=== PATIENT | male | born 1975 | race Caucasian/White ===

== ENCOUNTER 2017-10-11 16:57 | Emergency (ER) | payer BC ==
[2017-10-11 17:18] VITALS: BP 126/75
--- NOTE | 2017-10-11 17:54 | UC ---
Back Pain HPI - HPI Summary HPI Summary: 42 year old male presents with onset of mid thoracic back pain 2 days ago while cleaning his pool. Became more sever today when he leaned forward to make some coffee. Describes pain as constant ache with occasional spasming that worsens with bending, twisting, or lifting. He had a similar injury approximately 1 month ago that he self treated with NSAIDs, ice and heat with improvement. Denies fever, chills, CP, SOB, weakness, dizziness, abdominal pain, nausea, vomiting, dysuria, frequency, urgency, hematuria, weakness, numbness, tingling in extremities or loss of bowel or bladder control. - History of Current Complaint Chief Complaint: UCBackPain Stated Complaint: MID TO LEFT BACK PAIN Time Seen by Provider: 10/11/17 17:31 Hx Obtained From: Patient Onset/Duration: Gradual Onset Timing: Constant, Lasting Days - 2 Severity Initially: Mild Severity Currently: Moderate Pain Intensity: 1 Character: Aching, Spasmodic Aggravating Factor(s): Movement, Lifting, Bending Alleviating Factor(s): Nothing Associated Signs And Symptoms: Positive: Negative - Risk Factors AAA Risk Factors: Negative Cauda Equina Risk Factors: Negative - Allergies/Home Medications Allergies/Adverse Reactions: Allergies Allergy/AdvReac Type Severity Reaction Status Date / Time No Known Allergies Allergy Verified 10/11/17 17:10 PMH/Surg Hx/FS Hx/Imm Hx Previously Healthy: Yes - Surgical History Surgical History: None - Family History Known Family History: Positive: Other - noncontributory - Social History Occupation: Employed Full-time Lives: With Family Alcohol Use: None Substance Use Type: None Smoking Status (MU): Heavy Every Day Tobacco Smoker Type: Cigarettes Amount Used/How Often: 1 PPD Length of Time of Smoking/Using Tobacco: 20 YEARS - Immunization History Most Recent Tetanus Shot: UTD Review of Systems Constitutional: Negative Skin: Negative Respiratory: Negative Cardiovascular: Negative Gastrointestinal: Negative Genitourinary: Negative Motor: Negative Neurovascular: Negative Musculoskeletal: Other: - See HPI Neurological: Negative Is Patient Immunocompromised?: No All Other Systems Reviewed And Are Negative: Yes Physical Exam Triage Information Reviewed: Yes Appearance: Well-Appearing, No Pain Distress, Well-Nourished Vital Signs: Initial Vital Signs Temp 98 F 10/11/17 17:11 Pulse 66 10/11/17 17:11 Resp 16 10/11/17 17:11 BP 126/75 10/11/17 17:11 Pulse Ox 100 10/11/17 17:11 Vital Signs Reviewed: Yes Respiratory: Positive: Lungs clear, Normal breath sounds, No respiratory distress Cardiovascular: Positive: RRR, No Murmur, Pulses Normal, Brisk Capillary Refill Abdomen Description: Positive: Nontender, Soft. Negative: Pulsatile Mass Musculoskeletal: Positive: Strength Intact, Other: - CTL spine nontender Neurological: Positive: Muscle Tone Normal, Other: - sensation intact Skin Exam: Normal Back Pain Course/Dx - Course Course Of Treatment: 42 year old male with 2 day history of mid thoracic back pain that began after cleaning pool. Similar injury approximately 1 month ago that was self-treated with conservative measures. Exam benign. Likely muscular in origin. Will treat with naproxen, cyclobenzaprine, and heat. Patient already has appointment with PT. He was given a list of PCPs to follow up with if pain symptoms do not improve in 2 weeks. - Differential Dx/Diagnosis Differential Diagnosis/HQI/PQRI: Herniated Disc, Other - Muscle strain Provider Diagnoses: Acute thoracic back pain Discharge - Sign-Out/Discharge Documenting (check all that apply): Patient Departure - Discharge Plan Condition: Stable Disposition: HOME Prescriptions: Cyclobenzaprine TAB* [Flexeril 10 MG TAB*] 10 mg PO TID PRN #30 tab PRN Reason: Pain Naproxen [Naproxen 500 mg tab] 500 mg PO BID #30 tablet. Patient Education Materials: Back Pain (ED) Referrals: No Primary Care Phys,NOPCP [Primary Care Provider] - Additional Instructions: Take naproxen 500 mg 1 tab every 12 hours with food for next 7 days then may take every 12 hours as needed. Use cyclobenzaprine (Flexeril) 10 mg 1 tab every 8 hours as needed for severe pain or muscle spasm. This will cause drowsiness so do not take and drive or operate machinery. Use a heating pad or take a hot shower 3-4 times a day to help relax muscles and alleviate pain. It is best to remain active with back pain instead of lying or remaining seated for long periods of time as this can cause the muscles to become weak and worsen the injury. Avoid heavy lifting or strenuous activity. Normal everyday activities are fine. Keep your appointment with physical therapy as scheduled. Follow up with a primary care provider if no improvement in 2 weeks. Seek immediate medical attention in the emergency room if you develop fever greater than 100.5 F, have chest pain, shortness of breath, become weak or dizzy , have weakness, numbness, tingling in your lower extremities, or lose control of your bowel or bladder. - Billing Disposition and Condition Condition: STABLE Disposition: Home
== END 2017-10-11 18:03 | disposition home or self-care (01) ==
LOC: UCCORT 16:57
DX: M54.6 Pain in thoracic spine (principal); F17.210 Nicotine dependence, cigarettes, uncomplicated
CPT/HCPCS: 99202; G0463